=== PATIENT | female | born 1975 | race Hispanic/Latino ===

== ENCOUNTER 2022-01-15 08:54 | Outpatient (CLI) | payer OTHER ==
[2022-01-15 09:47] LABS: ALT (SGPT) 14 U/L (8-55); AST (SGOT) 15 U/L (5-34); Alkaline Phosphatase 174 U/L (40-110); Anion Gap 19 mmol/L (10-20); BUN (Urea Nitrogen) 38 mg/dL (7.0-18.7); Calc. Creatinine Clearance 0 mL/min (70-130); Calcium 10.2 mg/dL (7.8-10.44); Carbon Dioxide 20 mmol/L (22-29); Cardiac Risk 5.7 (Less than 4.5); Chloride 102 mmol/L (98-107); Cholesterol 136 mg/dl (< 200 Desired); Globulin 3.5 g/dL (2.4-3.5); Glucose 182 mg/dL (70-105); HDL Cholesterol 24 mg/dL (>60 Neg Risk); LDL Cholesterol, Calculated 35 mg/dL; Potassium 4.8 mmol/L (3.5-5.1); Protein, Total 7.5 g/dL (6.0-8.3); Sodium 136 mmol/L (136-145); Triglycerides 385 mg/dL (Less than 150)
[2022-01-15 16:30] LABS: Hemoglobin A1c 7.8 % (4.0-6.0)
== END 2022-01-15 08:55 | disposition home or self-care (01) ==
LOC: MADLAB 08:54
PROVIDERS: ATTEND Family Medicine
DX: E11.29 Type 2 diabetes mellitus with other diabetic kidney complication (principal); E78.2 Mixed hyperlipidemia
CPT/HCPCS: 36415; 80053; 80061; 83036